=== PATIENT | female | born 1970 | race Caucasian/White ===

== ENCOUNTER 2019-10-17 14:17 | Inpatient (IN) | payer MEDICAID ==
[~2019-10-17] VITALS: Ht 162.6 cm; Wt 81.0 kg
[~2019-10-17 14:17] MED LIST: CITA20TA28 PO; DOCU100T2 PO; ESOM20CA PO; EST1T SL; GABA-532 PO; HYDR-4353 PO; LEVO150T62 PO; LORA1TAB PO; PROM25TA14 PO
[2019-10-17 15:31] LABS: BASOPHILS % (AUTO) 0.3 % (0-1); EOSINOPHILS # (AUTO) 0.3 X10'3 (0-0.9); EOSINOPHILS % (AUTO) 2.7 % (0-6); HEMATOCRIT 36.9 % (35.0-45.0); HEMOGLOBIN 12.7 g/dl (12.0-16.0); LYMPHOCYTES # (AUTO) 3.6 X10'3 (1.1-4.8); LYMPHOCYTES % (AUTO) 34.4 % (21-51); MEAN CORPUSCULAR HEMOGLOBIN 29.7 PG (27.0-31.0); MEAN CORPUSCULAR HGB CONC 34.4 g/dL (33.0-36.5); MEAN CORPUSCULAR VOLUME 86.4 FL (78-98); MEAN PLATELET VOLUME 6.8 FL (7.4-10.4); MONOCYTES # (AUTO) 1.3 X10'3 (0-0.9); MONOCYTES % (AUTO) 12.1 % (2-12); NEUTROPHILS # (AUTO) 5.2 X10'3 (1.8-7.7); NEUTROPHILS % (AUTO) 50.5 % (42-75); PLATELET COUNT 379 X10'3 (140-440); RED BLOOD COUNT 4.27 X10'6 (4.20-5.60); RED CELL DISTRIBUTION WIDTH 12.1 % (11.5-14.5); WHITE BLOOD COUNT 10.4 X10'3 (4.5-11.0)
[2019-10-17] MEDS ORDERED: morphine 4 MG/ML inj SYRINge IV ONE (15:40)
[2019-10-17 15:46] LABS: ALANINE AMINOTRANSFERASE 25 U/L (12-78); ALBUMIN 3.3 G/DL (3.4-5.0); ALBUMIN/GLOBULIN RATIO 1.2 (1.1-1.5); ALKALINE PHOSPHATASE 51 IU/L (46-116); AMYLASE 81 U/L (25-115); ANION GAP 9 (8-16); ASPARTATE AMINO TRANSFERASE 22 U/L (10-37); BILIRUBIN,TOTAL 0.2 MG/DL (0.1-1.0); BLOOD UREA NITROGEN 9 MG/DL (7-18); BUN/CREATININE RATIO 11.8 (6.6-38.0); CHLORIDE 107 MMOL/L (99-107); CREATININE 0.76 MG/DL (0.40-0.90); GLUCOSE 90 MG/DL (70-104); LIPASE 803 U/L (73-393); POTASSIUM 3.6 MMOL/L (3.5-5.1); SODIUM 145 MMOL/L (135-145); TOTAL CARBON DIOXIDE 29.1 MMOL/L (24-32); TOTAL PROTEIN 6.1 G/DL (6.4-8.2); eGFR 81 ML/MIN
[2019-10-17 16:06] LABS: URINE HCG NEGATIVE (NEG)
[2019-10-17 16:09] LABS: CLARITY,URINE CLEAR (Clear); COLOR,URINE STRAW (Yellow); GLUCOSE, URINE NEGATIVE (Neg); KETONES,URINE NEGATIVE (Neg); LEUKOCYTE ESTERASE ,URINE NEGATIVE (Neg); NITRITES, URINE NEGATIVE (Neg); OCCULT BLOOD,URINE NEGATIVE (Neg); PROTEIN,URINE NEGATIVE (Neg); UA COLLECTION TYPE CLN CATCH MIDSTREAM; UROBILINOGEN,URINE 0.2 E.U/dL (0.2-1.0)
[2019-10-17] MEDS ORDERED: acetaminophen 325mg tablet PO PRN (16:35)
[2019-10-17] MEDS ORDERED: morphine 2 MG/ML inj. syringe IV PRN (16:35)
[2019-10-17] MEDS ORDERED: mag hydrox/Alum hydrox/simeth 30ml oral suspension PO PRN (16:35)
[2019-10-17] MEDS ORDERED: magnesium hydroxide 30ml (MOM) UD suspension PO PRN (16:35)
[2019-10-17] MEDS ORDERED: HYDROcodone/acetaminophen 5mg/325mg tablet PO PRN (16:35)
[2019-10-17] MEDS: normal saline 1000ml 1,000 ML IV SCH ×2 (17:18→19:20)
[2019-10-17] MEDS: morphine 2 MG/ML inj. syringe IV PRN ×2 (18:16→20:59)
[2019-10-17] MEDS ORDERED: DICY20TA11 PO (18:26)
[2019-10-17] MEDS ORDERED: LEVO200T PO (18:26)
[2019-10-17] MEDS ORDERED: TRAZ150T78 PO (18:26)
[2019-10-17] MEDS ORDERED: CYCL-1 PO (18:26)
[2019-10-17] MEDS ORDERED: LYR75C PO ×2 (18:26)
[2019-10-17] MEDS ORDERED: HYDR-4353 PO (18:26)
--- NOTE | 2019-10-17 18:45 | NUR ---
Patient in room [facility]. I have received report from Christos in the Er and had the opportunity to ask questions and will assume patient care upon arrival to the floor. Addendum: 10/17/19 at 2005 by Dolly Gomez RN Amended: Links added.
--- NOTE | 2019-10-17 18:55 | NUR ---
recieved pt from the er and orientated to the unit vitals done, vss. visitors at the bedside.
[2019-10-17 19:00] VITALS: BP 104/72
--- NOTE | 2019-10-17 20:55 | NUR ---
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 pain 7/10 and tearful with it.
[2019-10-17] MEDS: HYDROcodone/acetaminophen 10/325mg tab PO PRN (23:02)
--- NOTE | 2019-10-17 23:03 | NUR ---
pt up to brp for lakeisha colored small not normal stool. c/o abd pain 5/10 and medicated with norco for this.
--- NOTE | 2019-10-17 23:28 | NUR ---
resting without s&s of distress on her side at this time.
[2019-10-18] VITALS: BP 105/54
[2019-10-18] MEDS: morphine 2 MG/ML inj. syringe IV PRN ×2 (01:03→04:58)
--- NOTE | 2019-10-18 01:05 | NUR ---
pt awoke in pain and medicated with 2mg morphine for this. no stool at this time.
--- NOTE | 2019-10-18 02:38 | NUR ---
resting eyes closed without changes.
--- NOTE | 2019-10-18 04:22 | NUR ---
resting without s&s of distress.
[2019-10-18] MEDS: normal saline 1000ml 1,000 ML IV SCH ×2 (04:57→16:01)
--- NOTE | 2019-10-18 05:04 | NUR ---
medicated with morphine for abd pain and headache. 5/10 and cool wash cloth given to her for her eyes. pt remains npo.
[2019-10-18] MEDS ORDERED: cyclobenzaprine 10mg tablet PO PRN (06:00)
[2019-10-18 06:02] LABS: BASOPHILS % (AUTO) 0.3 % (0-1); EOSINOPHILS # (AUTO) 0.3 X10'3 (0-0.9); EOSINOPHILS % (AUTO) 3.7 % (0-6); HEMOGLOBIN 11.2 g/dl (12.0-16.0); LYMPHOCYTES # (AUTO) 3.3 X10'3 (1.1-4.8); LYMPHOCYTES % (AUTO) 41.9 % (21-51); MEAN CORPUSCULAR HEMOGLOBIN 30.2 PG (27.0-31.0); MEAN CORPUSCULAR VOLUME 86.3 FL (78-98); MEAN PLATELET VOLUME 6.9 FL (7.4-10.4); MONOCYTES % (AUTO) 12.6 % (2-12); NEUTROPHILS # (AUTO) 3.3 X10'3 (1.8-7.7); NEUTROPHILS % (AUTO) 41.5 % (42-75); PLATELET COUNT 309 X10'3 (140-440); RED BLOOD COUNT 3.71 X10'6 (4.20-5.60); WHITE BLOOD COUNT 7.9 X10'3 (4.5-11.0)
[2019-10-18 06:11] LABS: ALBUMIN 2.8 G/DL (3.4-5.0); ANION GAP 6 (8-16); BLOOD UREA NITROGEN 8 MG/DL (7-18); BUN/CREATININE RATIO 9.9 (6.6-38.0); CALCIUM 8.1 MG/DL (8.5-10.1); CHLORIDE 110 MMOL/L (99-107); CREATININE 0.81 MG/DL (0.40-0.90); GLUCOSE 90 MG/DL (70-104); POTASSIUM 3.3 MMOL/L (3.5-5.1); SODIUM 146 MMOL/L (135-145); TOTAL CARBON DIOXIDE 29.9 MMOL/L (24-32); eGFR 75 ML/MIN
--- NOTE | 2019-10-18 06:39 | NUR ---
Problems reprioritized. Patient report given, questions answered & plan of care reviewed with Louisa Lim. Addendum: 10/18/19 at 0640 by Dolly Gomez RN Amended: Links added.
[2019-10-18 07:00] VITALS: BP 99/66
[2019-10-18] MEDS: pregabalin 75mg capsule PO SCH ×2 (07:58→20:30)
[2019-10-18] MEDS: levoTHYROXINE 100mcg tablet PO SCH (07:58)
[2019-10-18] MEDS: HYDROcodone/acetaminophen 10/325mg tab PO PRN (07:59)
[2019-10-18] MEDS: dicyclomine 10 MG capsule PO SCH ×4 (08:00→20:30)
[2019-10-18] MEDS ORDERED: ESOM20CA PO (08:04)
[2019-10-18 10:44] LABS: LIPASE 233 U/L (73-393)
[2019-10-18] MEDS: morphine 4 MG/ML inj SYRINge IV PRN ×3 (10:48→20:21)
[2019-10-18] MEDS ORDERED: potassium Cl 20 mEq SR tablet PO PRN (10:50)
[2019-10-18] MEDS ORDERED: potassium CL 10mEq/100ml bag 100 ML IV PRN (10:50)
[2019-10-18] MEDS ORDERED: magnesium 4gm in 100ml NS 100 ML IV PRN (10:50)
[2019-10-18] MEDS ORDERED: magnesium Cl slow-release 64mg tablet PO PRN (10:50)
[2019-10-18 11:00] VITALS: BP 107/67
[2019-10-18] MEDS: potassium Cl 20 mEq SR tablet PO PRN ×3 (12:25→23:23)
--- NOTE | 2019-10-18 12:40 | NUR ---
PAGED DR ROMERO FOR EXCEDRIN FOR A HEADACHE, AWAITING CALL BACK
--- NOTE | 2019-10-18 16:53 | NUR ---
Malnutrition consult: Pt admit w/ N/V and abdominal 8 days prior to admit. CT shows possible intussusception pending new CT w/ oral contrast today per MD note. Possible etoh pancreatitis but lipase has normalized and current pain of unknown etiology per MD notes. Pt has decreased PO hx past 8 days r/t GI symptoms; otherwise no edema/wounds, normal strength, and no significant wt loss hx present. Advanced to full liquid diet pending PO hx today. At this time pt lacks minimum malnutrition criteria. Will monitor for PO diet tolerance and additional malnutrition criteria this admit. Addendum: 10/18/19 at [address] Amended: Links added.
[2019-10-18 18:15] VITALS: BP 117/94
--- NOTE | 2019-10-18 19:03 | NUR ---
Patient in room [facility]. I have received report from Louisa Tan RN and had the opportunity to ask questions and assume patient care.
[2019-10-18] MEDS: ondansetron/PF 4mg/2ml inj IV PRN (19:17)
[2019-10-18] MEDS: traZODone 150mg tablet PO SCH (20:30)
[2019-10-18] MEDS: diatr meglu/diatrizoate 30ml oral sol.-(3 dose) bottle PO SCH (21:28)
[2019-10-19] MEDS: normal saline 1000ml 1,000 ML IV SCH ×2 (02:23→12:59)
[2019-10-19 06:07] LABS: ANION GAP 9 (8-16); BLOOD UREA NITROGEN 4 MG/DL (7-18); BUN/CREATININE RATIO 6.2 (6.6-38.0); CALCIUM 8.4 MG/DL (8.5-10.1); CHLORIDE 109 MMOL/L (99-107); CREATININE 0.65 MG/DL (0.40-0.90); GLUCOSE 96 MG/DL (70-104); SODIUM 144 MMOL/L (135-145); TOTAL CARBON DIOXIDE 26.1 MMOL/L (24-32); eGFR > 90 ML/MIN
[2019-10-19 06:26] LABS: BASOPHILS # (AUTO) 0.1 X10'3 (0-0.2); BASOPHILS % (AUTO) 0.6 % (0-1); EOSINOPHILS # (AUTO) 0.3 X10'3 (0-0.9); EOSINOPHILS % (AUTO) 3.4 % (0-6); HEMATOCRIT 34.1 % (35.0-45.0); HEMOGLOBIN 11.9 g/dl (12.0-16.0); LYMPHOCYTES # (AUTO) 3.8 X10'3 (1.1-4.8); LYMPHOCYTES % (AUTO) 46.4 % (21-51); MEAN CORPUSCULAR HEMOGLOBIN 29.9 PG (27.0-31.0); MEAN CORPUSCULAR HGB CONC 34.9 g/dL (33.0-36.5); MEAN CORPUSCULAR VOLUME 85.8 FL (78-98); MEAN PLATELET VOLUME 7.1 FL (7.4-10.4); MONOCYTES # (AUTO) 0.8 X10'3 (0-0.9); NEUTROPHILS # (AUTO) 3.3 X10'3 (1.8-7.7); NEUTROPHILS % (AUTO) 39.6 % (42-75); PLATELET COUNT 367 X10'3 (140-440); RED BLOOD COUNT 3.97 X10'6 (4.20-5.60); WHITE BLOOD COUNT 8.3 X10'3 (4.5-11.0)
--- NOTE | 2019-10-19 06:49 | NUR ---
Problems reprioritized. Patient report given, questions answered & plan of care reviewed with FRANKY Cohen.
--- NOTE | 2019-10-19 06:59 | NUR ---
Patient in room [facility]. I have received report from Jaci WILKINS and had the opportunity to ask questions and assume patient care.
[2019-10-19 07:25] VITALS: BP 100/62
[2019-10-19] MEDS: diatr meglu/diatrizoate 30ml oral sol.-(3 dose) bottle PO SCH ×2 (07:28→10:01)
[2019-10-19] MEDS: pantoprazole 40mg Tablet.DR PO SCH (07:28)
[2019-10-19] MEDS: levoTHYROXINE 100mcg tablet PO SCH (07:29)
[2019-10-19] MEDS: dicyclomine 10 MG capsule PO SCH ×4 (07:29→21:24)
[2019-10-19] MEDS: pregabalin 75mg capsule PO SCH ×2 (07:29→21:26)
[2019-10-19] MEDS: morphine 4 MG/ML inj SYRINge IV PRN (07:30)
[2019-10-19] MEDS ORDERED: iohexol 300mg/ml 100ml inj. ONE (10:04)
[2019-10-19 11:00] VITALS: BP 119/73
[2019-10-19] MEDS: morphine 2 MG/ML inj. syringe IV PRN ×3 (12:50→22:14)
[2019-10-19] MEDS: HYDROcodone/acetaminophen 10/325mg tab PO PRN (15:51)
[2019-10-19 18:00] VITALS: BP 113/66
--- NOTE | 2019-10-19 18:59 | NUR ---
Problems reprioritized. Patient report given, questions answered & plan of care reviewed with Liz WILKINS.
[2019-10-19] MEDS: traZODone 150mg tablet PO SCH (21:24)
[2019-10-19] MEDS: ondansetron/PF 4mg/2ml inj IV PRN (22:33)
[2019-10-19 23:00] VITALS: BP 113/66
[2019-10-20] MEDS: normal saline 1000ml 1,000 ML IV SCH ×2 (00:42→13:44)
[2019-10-20] MEDS: HYDROcodone/acetaminophen 10/325mg tab PO PRN (04:10)
[2019-10-20] MEDS: morphine 2 MG/ML inj. syringe IV PRN ×3 (05:37→15:35)
[2019-10-20 06:05] LABS: BASOPHILS % (AUTO) 0.3 % (0-1); EOSINOPHILS # (AUTO) 0.3 X10'3 (0-0.9); EOSINOPHILS % (AUTO) 3.6 % (0-6); HEMATOCRIT 33.9 % (35.0-45.0); HEMOGLOBIN 11.6 g/dl (12.0-16.0); LYMPHOCYTES # (AUTO) 3.6 X10'3 (1.1-4.8); LYMPHOCYTES % (AUTO) 43.6 % (21-51); MEAN CORPUSCULAR HEMOGLOBIN 29.9 PG (27.0-31.0); MEAN CORPUSCULAR HGB CONC 34.3 g/dL (33.0-36.5); MEAN PLATELET VOLUME 7.1 FL (7.4-10.4); MONOCYTES % (AUTO) 11.7 % (2-12); NEUTROPHILS # (AUTO) 3.4 X10'3 (1.8-7.7); NEUTROPHILS % (AUTO) 40.8 % (42-75); PLATELET COUNT 355 X10'3 (140-440); RED CELL DISTRIBUTION WIDTH 12.1 % (11.5-14.5); WHITE BLOOD COUNT 8.2 X10'3 (4.5-11.0)
[2019-10-20 06:20] LABS: ALBUMIN 2.8 G/DL (3.4-5.0); ANION GAP 5 (8-16); BLOOD UREA NITROGEN 5 MG/DL (7-18); BUN/CREATININE RATIO 7.1 (6.6-38.0); CALCIUM 7.7 MG/DL (8.5-10.1); CHLORIDE 108 MMOL/L (99-107); GLUCOSE 91 MG/DL (70-104); POTASSIUM 3.7 MMOL/L (3.5-5.1); SODIUM 144 MMOL/L (135-145); TOTAL CARBON DIOXIDE 30.7 MMOL/L (24-32); eGFR 89 ML/MIN
--- NOTE | 2019-10-20 06:52 | NUR ---
Patient in room [facility]. I have received report from Liz WILKINS and had the opportunity to ask questions and assume patient care.
[2019-10-20] MEDS: pregabalin 75mg capsule PO SCH ×2 (07:59→21:00)
[2019-10-20] MEDS: pantoprazole 40mg Tablet.DR PO SCH (07:59)
[2019-10-20] MEDS: levoTHYROXINE 100mcg tablet PO SCH (07:59)
[2019-10-20] MEDS: dicyclomine 10 MG capsule PO SCH ×4 (08:04→21:05)
[2019-10-20 08:50] VITALS: BP 97/62
[2019-10-20 11:00] VITALS: BP 94/67
[2019-10-20] MEDS ORDERED: oxyCODONE/APAP 10/325mg tablet PO PRN (16:45)
[2019-10-20 18:00] VITALS: BP 110/65
--- NOTE | 2019-10-20 18:29 | NUR ---
Problems reprioritized. Patient report given, questions answered & plan of care reviewed with Filiberto WILKINS.
--- NOTE | 2019-10-20 18:51 | NUR ---
Patient in room [facility]. I have received report from FRANKY Cohen and had the opportunity to ask questions and assume patient care.
[2019-10-20] MEDS: traZODone 150mg tablet PO SCH (21:01)
[2019-10-20] MEDS: oxyCODONE/APAP 5-325mg tablet PO PRN (21:03)
[2019-10-21 00:05] VITALS: BP 90/53
[2019-10-21] MEDS: normal saline 1000ml 1,000 ML IV SCH (03:00)
[2019-10-21 04:33] LABS: BASOPHILS # (AUTO) 0.1 X10'3 (0-0.2); BASOPHILS % (AUTO) 0.6 % (0-1); EOSINOPHILS # (AUTO) 0.4 X10'3 (0-0.9); EOSINOPHILS % (AUTO) 4.4 % (0-6); HEMATOCRIT 34.3 % (35.0-45.0); HEMOGLOBIN 11.9 g/dl (12.0-16.0); LYMPHOCYTES # (AUTO) 3.3 X10'3 (1.1-4.8); LYMPHOCYTES % (AUTO) 40.7 % (21-51); MEAN CORPUSCULAR HGB CONC 34.8 g/dL (33.0-36.5); MEAN CORPUSCULAR VOLUME 86.3 FL (78-98); MEAN PLATELET VOLUME 6.9 FL (7.4-10.4); MONOCYTES # (AUTO) 0.9 X10'3 (0-0.9); MONOCYTES % (AUTO) 11.4 % (2-12); NEUTROPHILS # (AUTO) 3.5 X10'3 (1.8-7.7); NEUTROPHILS % (AUTO) 42.9 % (42-75); PLATELET COUNT 361 X10'3 (140-440); RED BLOOD COUNT 3.98 X10'6 (4.20-5.60); RED CELL DISTRIBUTION WIDTH 11.9 % (11.5-14.5); WHITE BLOOD COUNT 8.2 X10'3 (4.5-11.0)
[2019-10-21 04:42] LABS: ALBUMIN 2.7 G/DL (3.4-5.0); ANION GAP 6 (8-16); BLOOD UREA NITROGEN 7 MG/DL (7-18); BUN/CREATININE RATIO 9.1 (6.6-38.0); CHLORIDE 110 MMOL/L (99-107); CREATININE 0.77 MG/DL (0.40-0.90); GLUCOSE 115 MG/DL (70-104); POTASSIUM 3.8 MMOL/L (3.5-5.1); SODIUM 145 MMOL/L (135-145); TOTAL CARBON DIOXIDE 28.8 MMOL/L (24-32); eGFR 79 ML/MIN
[2019-10-21 05:02] VITALS: BP 93/48
[2019-10-21] MEDS: oxyCODONE/APAP 5-325mg tablet PO PRN ×2 (05:07→11:10)
--- NOTE | 2019-10-21 06:38 | NUR ---
Problems reprioritized. Patient report given, questions answered & plan of care reviewed with FRANKY Lozada.
--- NOTE | 2019-10-21 06:39 | NUR ---
Patient in room [facility]. I have received report from Filiberto WILKINS and had the opportunity to ask questions and assume patient care.
[2019-10-21 07:00] VITALS: BP 93/57
[2019-10-21] MEDS: levoTHYROXINE 100mcg tablet PO SCH (07:33)
[2019-10-21] MEDS: pantoprazole 40mg Tablet.DR PO SCH (07:33)
[2019-10-21] MEDS: dicyclomine 10 MG capsule PO SCH (07:35)
[2019-10-21] MEDS: pregabalin 75mg capsule PO SCH (07:36)
[2019-10-21] MEDS ORDERED: pantoprazole 40mg Tablet.DR PO ONE (07:40)
[2019-10-21 08:46] VITALS: BP 100/57
[2019-10-21] MEDS ORDERED: PER5325T PO (09:17)
--- NOTE | 2019-10-21 11:23 | NUR ---
Discharge instructions given to patient, patient verbalized understanding of all instructions made. Peripheral IV catheter removed, tip intact. Original written prescriptions for Percocet and work excuse note given to patient. Instructed patient to ensure she has all her belongings with her before leaving.
--- NOTE | 2019-10-21 11:25 | NUR ---
Patient has a family member at bedside that will drive for her back home
--- NOTE | 2019-10-21 13:03 | NUR ---
I was told by Seism[employer] Helper Phan that patient has been having issue with filling her prescription for Percocet, that the pharmacy will not fill it because patient still has [place] filled. I tried to call patient at the number provided [phone] but no answer. I left a voicemail message to call the hospital
--- NOTE | 2019-10-21 14:07 | NUR ---
Patient called back, she told me that the pharmacy would not fill the prescription for Percocet because she still has [place] filled. Patient stated that [place] does not work for her. I advised her to go to her primary pharmacy to surrender her [place] so that she can get her Percocet filled. Patient states "I dont want to go back home, [place] miles away and Im staying with my mom here!" I asked to have her family come home for her to get her [place] so she has something for pain because she won't have the Percocet filled anywhere she goes if she still has [place], patient reluctant to go back home to surrender the [place] to her pharmacy.
== END 2019-10-21 11:40 | disposition home or self-care (01) | DRG 282 ==
LOC: ER 14:17 → ED HOLD 16:33 → SUR 3N 18:30
PROVIDERS: ADMIT Internal Medicine; ATTEND Internal Medicine
DX: K85.90 Acute pancreatitis without necrosis or infection, unspecified (principal); N17.9 Acute kidney failure, unspecified; K76.0 Fatty (change of) liver, not elsewhere classified; K21.9 Gastro-esophageal reflux disease without esophagitis; E03.9 Hypothyroidism, unspecified; G47.00 Insomnia, unspecified; K56.7 Ileus, unspecified; E87.6 Hypokalemia; K86.1 Other chronic pancreatitis; Z90.710 Acquired absence of both cervix and uterus; Z90.49 Acquired absence of other specified parts of digestive tract; Z88.8 Allergy status to other drugs, medicaments and biological substances; Z91.040 Latex allergy status; Z79.899 Other long term (current) drug therapy
CPT/HCPCS: 36415; 74177; 74181; 76700; 80048; 80053; 81003; 81025; 82150; 83605; 83690; 83880; 84443; 85025; 87081; G0378; J2270; J2405; J7030; Q9963; Q9967

== ENCOUNTER 2020-10-12 00:08 | Emergency (ER) | payer MEDICAID ==
[~2020-10-12] VITALS: Ht 162.6 cm; Wt 79.1 kg
[~2020-10-12 00:08] MED LIST changes: -CITA20TA28 PO; +CYCL-1 PO; +DICY20TA11 PO; -DOCU100T2 PO; -EST1T SL; -GABA-532 PO; -HYDR-4353 PO; -LEVO150T62 PO; +LEVO200T PO; -LORA1TAB PO; +LYR75C PO; +PER5325T PO; -PROM25TA14 PO; +TRAZ150T78 PO
[2020-10-12] MEDS ORDERED: ondansetron/PF 4mg/2ml inj IV ONE (00:20)
[2020-10-12] MEDS ORDERED: morphine 4 MG/ML inj SYRINge IV ONE (00:20)
[2020-10-12] MEDS: LORazepam 2 mg/ml vial IV ONE ×2 (00:24→01:14)
[2020-10-12] MEDS ORDERED: proCHLORperazine 10 MG/2 ml inj IV ONE (00:55)
[2020-10-12] MEDS ORDERED: diphenhydrAMINE 50 mg/ml inj IV ONE (00:55)
[2020-10-12 00:59] LABS: CLARITY,URINE CLEAR (Clear); COLOR,URINE YELLOW (Yellow); GLUCOSE, URINE NEGATIVE (Neg); KETONES,URINE NEGATIVE (Neg); LEUKOCYTE ESTERASE ,URINE NEGATIVE (Neg); NITRITES, URINE NEGATIVE (Neg); OCCULT BLOOD,URINE TRACE-INTACT (Neg); PROTEIN,URINE NEGATIVE (Neg); UROBILINOGEN,URINE 0.2 E.U/dL (0.2-1.0)
--- NOTE | 2020-10-12 00:59 | NUR ---
Pt.'s sister Sobeida called, call back number [phone].
[2020-10-12 01:01] LABS: EOSINOPHILS # (AUTO) 0.2 X10'3 (0-0.9); EOSINOPHILS % (AUTO) 2.5 % (0-6); MEAN PLATELET VOLUME 7.1 FL (7.4-10.4); WHITE BLOOD COUNT 7.4 X10'3 (4.5-11.0)
[2020-10-12 01:03] LABS: BASOPHILS % (AUTO) 0.6 % (0-1); HEMATOCRIT 39.1 % (35.0-45.0); HEMOGLOBIN 13.3 g/dl (12.0-16.0); LYMPHOCYTES # (AUTO) 2.9 X10'3 (1.1-4.8); LYMPHOCYTES % (AUTO) 38.9 % (21-51); MEAN CORPUSCULAR VOLUME 88.4 FL (78-98); MONOCYTES # (AUTO) 0.8 X10'3 (0-0.9); MONOCYTES % (AUTO) 10.9 % (2-12); NEUTROPHILS # (AUTO) 3.5 X10'3 (1.8-7.7); NEUTROPHILS % (AUTO) 47.1 % (42-75); PLATELET COUNT 295 X10'3 (140-440); RED BLOOD COUNT 4.42 X10'6 (4.20-5.60); RED CELL DISTRIBUTION WIDTH 13.1 % (11.5-14.5)
[2020-10-12 01:09] LABS: UA COLLECTION TYPE NON-SPECIFIED
[2020-10-12 01:10] LABS: BACTERIA,URINE NONE SEEN /HPF (Neg); RBC,URINE 0-2 /HPF (0-2); SQUAMOUS EPITHELIAL CELL,UR FEW /LPF (FEW); WBC,URINE NONE SEEN /HPF (0-4)
[2020-10-12 01:15] LABS: ALANINE AMINOTRANSFERASE 28 U/L (12-78); ALBUMIN 3.8 G/DL (3.4-5.0); ALBUMIN/GLOBULIN RATIO 1.1 (1.1-1.5); ALKALINE PHOSPHATASE 93 IU/L (46-116); ANION GAP 10 (8-16); ASPARTATE AMINO TRANSFERASE 23 U/L (10-37); BILIRUBIN,TOTAL 0.2 MG/DL (0.1-1.0); BLOOD UREA NITROGEN 10 MG/DL (7-18); BUN/CREATININE RATIO 13.5 (6.6-38.0); CALCIUM 8.7 MG/DL (8.5-10.1); CHLORIDE 109 MMOL/L (99-107); CREATININE 0.74 MG/DL (0.40-0.90); ETHANOL 0.146 GM/DL (0.0-0.010); GLUCOSE 133 MG/DL (70-104); POTASSIUM 3.8 MMOL/L (3.5-5.1); SODIUM 145 MMOL/L (135-145); TOTAL CARBON DIOXIDE 26.4 MMOL/L (24-32); TOTAL PROTEIN 7.2 G/DL (6.4-8.2); eGFR 83 ML/MIN
--- NOTE | 2020-10-12 01:21 | NUR ---
Non-Administered ativan wasted with Angeli Boston RN
[2020-10-12] MEDS ORDERED: ketorolac trometh. 30mg/ml inj. IV ONE (01:25)
[2020-10-12] MEDS ORDERED: acetaminophen 325mg tablet PO ONE (01:25)
[2020-10-12] MEDS ORDERED: famotidine/PF 10 mg/ml inj IV ONE (01:25)
[2020-10-12] MEDS ORDERED: pantoprazole 40 MG vial IV ONE (01:25)
--- NOTE | 2020-10-12 01:35 | NUR ---
non administered ativan wasted with FRANKY Brian.
--- NOTE | 2020-10-12 02:04 | NUR ---
NIKKIE DSOUZA [phone] [facility]
[2020-10-12] MEDS ORDERED: normal saline 1000ml 1,000 ML IV ONE (02:20)
[2020-10-12 02:51] LABS: URINE AMPHETAMINE SCREEN NEGATIVE (Neg); URINE BARBITUATE SCREEN NEGATIVE (Neg); URINE BENZODIAZEPINES SCREEN NEGATIVE (Neg); URINE CANNABINOID SCREEN NEGATIVE (Neg); URINE COCAINE SCREEN NEGATIVE (Neg); URINE METHADONE SCREEN NEGATIVE (Neg); URINE OPIATE SCREEN POSITIVE (Neg); URINE PHENCYCLIDINE SCREEN NEGATIVE (Neg)
[2020-10-12 04:07] VITALS: BP 108/70
== END 2020-10-12 04:17 | disposition home or self-care (01) ==
LOC: ER 00:09
DX: S01.81XA Laceration without foreign body of other part of head, initial encounter (principal); R11.2 Nausea with vomiting, unspecified; G43.909 Migraine, unspecified, not intractable, without status migrainosus; F41.9 Anxiety disorder, unspecified; Z90.89 Acquired absence of other organs; Z90.710 Acquired absence of both cervix and uterus; Z98.890 Other specified postprocedural states; Z72.89 Other problems related to lifestyle; Z91.040 Latex allergy status; Z91.018 Allergy to other foods; Z88.8 Allergy status to other drugs, medicaments and biological substances; Z79.899 Other long term (current) drug therapy; W18.39XA Other fall on same level, initial encounter; Y93.89 Activity, other specified; Y92.89 Other specified places as the place of occurrence of the external cause; Y99.8 Other external cause status
CPT/HCPCS: 12015; 70450; 72125; 80053; 80305; 80320; 81001; 85025; 96361; 96374; 96375; 99285; C9113; J0780; J1200; J1885; J2270; J2405; J3490; J7030; J2060

== ENCOUNTER 2020-11-11 15:40 | Emergency (ER) | payer MEDICAID ==
[~2020-11-11] VITALS: Ht 162.6 cm; Wt 77.1 kg
[2020-11-11 15:54] VITALS: BP 111/71
[2020-11-11] MEDS ORDERED: metoclopramide 10mg tablet PO ONE (16:20)
[2020-11-11] MEDS ORDERED: acetaminophen 325mg tablet PO ONE (16:20)
[2020-11-11] MEDS ORDERED: AMOX500C2 PO (16:20)
[2020-11-11] MEDS ORDERED: ketorolac trometh inj. 60 MG/2 ML VIAL IM ONE (16:20)
[2020-11-11] MEDS ORDERED: amoxicillin 250mg capsule PO ONE (16:20)
[2020-11-11] MEDS ORDERED: CLIN150C8 PO (16:23)
[2020-11-11] MEDS ORDERED: clindamycin 150mg capsule PO ONE (16:25)
== END 2020-11-11 17:32 | disposition home or self-care (01) ==
LOC: ER 15:40
DX: L08.9 Local infection of the skin and subcutaneous tissue, unspecified (principal); B95.8 Unspecified staphylococcus as the cause of diseases classified elsewhere; J02.9 Acute pharyngitis, unspecified; G43.909 Migraine, unspecified, not intractable, without status migrainosus; F41.9 Anxiety disorder, unspecified; Z90.49 Acquired absence of other specified parts of digestive tract; Z90.710 Acquired absence of both cervix and uterus; Z72.89 Other problems related to lifestyle; Z88.8 Allergy status to other drugs, medicaments and biological substances; Z91.040 Latex allergy status; Z79.899 Other long term (current) drug therapy
CPT/HCPCS: 96372; 99284; J1885; J8597

== ENCOUNTER 2023-03-10 09:24 | Outpatient (CLI) | payer MEDICAID ==
[~2023-03-10 09:24] MED LIST changes: +CLIN150C8 PO; -DICY20TA11 PO; +DICY20TA2 PO
== END 2023-03-10 23:59 | disposition home or self-care (01) ==
LOC: RAD 09:24
PROVIDERS: ATTEND General Practice
DX: K56.7 Ileus, unspecified (principal)
CPT/HCPCS: 74250